=== PATIENT | female | born 1980 | race Caucasian/White ===

== ENCOUNTER → 2024-02-28 10:07 | Outpatient (CLI) | payer OTHER, SELFPAY ==
--- NOTE | 2024-02-28 10:11 | DI.RAD.S_ITS ---
PROCEDURE: XR FOOT LT 2V INDICATIONS: twisted ankle, pain 5th metatarsal TECHNIQUE: 3 views of the foot were acquired. COMPARISON: None. FINDINGS: Bones: Oblique fracture is seen involving distal fibular shaft/lateral malleolus. No acute left foot fractures or dislocations. No suspicious bony lesions. Soft tissues: No tibiotalar joint effusion. Achilles tendon appears normal. IMPRESSION: No acute left foot fracture or dislocation. Oblique fracture through distal fibular shaft/lateral malleolus better evaluated on left ankle radiograph. Dictated by: Mati Rose M.D. on 02/28/2024 at 10:57 Approved by: Mati Rose M.D. on 02/28/2024 at 10:57
--- NOTE | 2024-02-28 10:11 | DI.RAD.S_ITS ---
PROCEDURE: XR ANKLE LT MIN 3V INDICATIONS: fell last night, maxine/swelling lateral ankle TECHNIQUE: 3 views of the ankle were acquired. COMPARISON: None. FINDINGS: Bones: Acute oblique fracture through distal fibular shaft with posterior and lateral displacement at fracture site . Mild widening of medial and lateral ankle mortise is seen. No suspicious bony lesions. Soft tissues: Diffuse ankle soft tissue swelling. No tibiotalar joint effusion. Achilles tendon appears normal. IMPRESSION: Acute displaced oblique fracture through distal fibular shaft with widened medial and lateral ankle mortise and diffuse ankle soft tissue swelling. Dictated by: Mati Rose M.D. on 02/28/2024 at 10:55 Approved by: Mati Rose M.D. on 02/28/2024 at 10:56
== END ==
PROVIDERS: Referring Provider Physician Assistant; Visit Provider Physician Assistant
DX: S82.432A Displaced oblique fracture of shaft of left fibula, initial encounter for closed fracture (principal); M79.89 Other specified soft tissue disorders; W19.XXXA Unspecified fall, initial encounter
CPT/HCPCS: 73610; 73620